=== PATIENT | male | born 1975 | race Caucasian/White ===

== ENCOUNTER 2024-08-03 16:02 | Emergency (ER) | payer OTHER ==
[2024-08-03 16:40] LABS: BASOPHILS ABSOLUTE AUTO 0.1 K/mm3 (0.0-0.2); BASOPHILS PERCENT AUTO 0.5 % (0.0-1.0); EOSINOPHILS ABSOLUTE AUTO 0.2 K/mm3 (0.0-0.4); EOSINOPHILS PERCENT AUTO 1.6 % (0.0-6.0); HEMATOCRIT 47.5 % (42.0-52.0); HEMOGLOBIN 16.1 gm/dl (14.0-18.0); IMMATURE GRAN ABSOLUTE AUTO 0.06 K/mm3 (0.00-0.05); IMMATURE GRAN PERCENT AUTO 0.4 % (0.0-0.4); LYMPHOCYTES ABSOLUTE AUTO 1.3 K/mm3 (1.0-4.8); LYMPHOCYTES PERCENT AUTO 9.1 % (24.0-44.0); MEAN CORPUSCULAR HEMOGLOBIN 29.9 pg (28.0-32.0); MEAN CORPUSCULAR HGB CONC 33.9 g/dl (32.0-36.0); MEAN CORPUSCULAR VOLUME 88.1 fl (83.0-99.0); MEAN PLATELET VOLUME 9.7 fl (9.4-12.4); MONOCYTES ABSOLUTE AUTO 1.1 K/mm3 (0.0-0.8); MONOCYTES PERCENT AUTO 7.2 % (0.0-8.0); NEUTROPHILS ABSOLUTE AUTO 11.9 K/mm3 (1.8-7.7); NEUTROPHILS PERCENT AUTO 81.2 % (41.0-71.0); PLATELET COUNT,PLT 366 K/mm3 (150-400); RED BLOOD CELL COUNT 5.39 M/mm3 (4.52-5.90); WHITE BLOOD CELL COUNT,WBC 14.65 K/mm3 (3.9-11.3)
[2024-08-03 16:58] LABS: INR 1.06; PROTHROMBIN TIME 11.2 SECONDS (9.7-12.0)
[2024-08-03 17:00] LABS: PTT,PARTIAL THROMBOPLSTIN TIME 23.1 SECONDS (21.7-31.4)
[2024-08-03 17:13] LABS: A/G RATIO 0.9 (1-2); ALBUMIN 3.5 g/dl (3.4-5.0); ANION GAP 14.1 (5-15); BILIRUBIN TOTAL 0.3 mg/dL (0.2-1.0); BUN/CREATININE RATIO 14.2 (14-18); CALCIUM 9.6 mg/dL (8.5-10.1); CREATININE 1.2 mg/dL (0.7-1.3); EST CRCL DRUG DOSING (CG) 73.63 mL/min; POTASSIUM,K 4.1 mEq/L (3.5-5.1); PROTEIN TOTAL,TP 7.4 g/dl (6.4-8.2)
[2024-08-03] MEDS: Aspirin 325 MG Tab.EC PO ONE (17:36)
[2024-08-03] MEDS: Ketorolac 30 MG/ML SDV IVPUSH ONE (18:17)
== END 2024-08-03 19:33 | disposition home or self-care (01) ==
LOC: JD.ED 16:02
DX: R07.89 Other chest pain (principal)
CPT/HCPCS: 36415; 71045; 80053; 83735; 83880; 84484; 85025; 85610; 85730; 93005; 96374; 99285; A9270; J1885; 99284

== ENCOUNTER 2024-08-04 03:39 | Observation (INO) | payer OTHER ==
[2024-08-04] MEDS: Aspirin 81 MG Tab.Chew PO ONE (04:10)
[2024-08-04 04:30] LABS: BASOPHILS PERCENT AUTO 0.3 % (0.0-1.0); EOSINOPHILS ABSOLUTE AUTO 0.3 K/mm3 (0.0-0.4); EOSINOPHILS PERCENT AUTO 2.2 % (0.0-6.0); HEMATOCRIT 48.7 % (42.0-52.0); HEMOGLOBIN 16.4 gm/dl (14.0-18.0); IMMATURE GRAN ABSOLUTE AUTO 0.05 K/mm3 (0.00-0.05); IMMATURE GRAN PERCENT AUTO 0.4 % (0.0-0.4); LYMPHOCYTES ABSOLUTE AUTO 2.1 K/mm3 (1.0-4.8); LYMPHOCYTES PERCENT AUTO 16.1 % (24.0-44.0); MEAN CORPUSCULAR HEMOGLOBIN 30.2 pg (28.0-32.0); MEAN CORPUSCULAR HGB CONC 33.7 g/dl (32.0-36.0); MEAN CORPUSCULAR VOLUME 89.7 fl (83.0-99.0); MEAN PLATELET VOLUME 9.7 fl (9.4-12.4); MONOCYTES ABSOLUTE AUTO 1.3 K/mm3 (0.0-0.8); MONOCYTES PERCENT AUTO 9.9 % (0.0-8.0); NEUTROPHILS ABSOLUTE AUTO 9.2 K/mm3 (1.8-7.7); NEUTROPHILS PERCENT AUTO 71.1 % (41.0-71.0); PLATELET COUNT,PLT 340 K/mm3 (150-400); RED BLOOD CELL COUNT 5.43 M/mm3 (4.52-5.90)
[2024-08-04 04:49] LABS: A/G RATIO 0.8 (1-2); ALBUMIN 3.3 g/dl (3.4-5.0); ANION GAP 14.9 (5-15); BILIRUBIN TOTAL 0.4 mg/dL (0.2-1.0); BUN/CREATININE RATIO 14.5 (14-18); CALCIUM 9.9 mg/dL (8.5-10.1); CREATININE 1.1 mg/dL (0.7-1.3); EST CRCL DRUG DOSING (CG) 80.32 mL/min; MAGNESIUM 2.3 mg/dL (1.8-2.4); POTASSIUM,K 3.9 mEq/L (3.5-5.1); PROTEIN TOTAL,TP 7.3 g/dl (6.4-8.2)
[2024-08-04] MEDS ORDERED: Naloxone 0.4 MG/ML SDV IVPUSH PRN (05:14)
[2024-08-04] MEDS: Morphine 4 MG/ML Syringe IVPUSH ONE (05:21)
[2024-08-04] MEDS: Sodium Chloride 0.9% 10 ML Syringe FLUSH PRN (05:22)
[2024-08-04] MEDS: Iopamidol 755 Mg/ML 100 ML Bottle IVPUSH ONE (05:51)
[2024-08-04] MEDS: Ketorolac 15 MG/ML SDV IVPUSH ONE (08:47)
[2024-08-04] MEDS ORDERED: Docusate Sodium 100 MG Cap PO PRN (09:49)
[2024-08-04] MEDS ORDERED: Ondansetron 4 MG Tab.DIS PO PRN (09:49)
[2024-08-04] MEDS: Pantoprazole 40 MG Tab.CR PO SCH (10:18)
[2024-08-04 10:32] LABS: CHOLESTEROL HDL 35 mg/dL (40-59); CHOLESTEROL LDL DIRECT 245 mg/dL (<100); CHOLESTEROL TOTAL 317 mg/dL (<200); TRIGLYCERIDES 119 mg/dL (<150)
[2024-08-04 10:56] LABS: HEMOGLOBIN A1C 5.1 %
[2024-08-04] MEDS: Acetaminophen 325 MG Tab PO PRN (16:06)
[2024-08-04] MEDS ORDERED: Indomethacin 25 MG Cap PO SCH (17:00)
[2024-08-04] MEDS: Indomethacin 25 MG Cap PO SCH (18:37)
[2024-08-04] MEDS: atorvaSTATin 40 MG Tab PO SCH (20:00)
[2024-08-05 05:12] LABS: ANION GAP 12.7 (5-15); BUN/CREATININE RATIO 15.8 (14-18); CALCIUM 9.1 mg/dL (8.5-10.1); CREATININE 1.2 mg/dL (0.7-1.3); EST CRCL DRUG DOSING (CG) 73.63 mL/min; POTASSIUM,K 4.7 mEq/L (3.5-5.1)
[2024-08-05] MEDS: Nitroglycerin 0.4 MG Tab.SL SL PRN (08:37)
[2024-08-05] MEDS: Enoxaparin 40 MG/0.4 ML Syringe SUBCUT SCH (08:38)
[2024-08-05] MEDS ORDERED: Metoprolol Tartrate 5 MG in Sodium Chloride 0.9% 50 ML IV ONE (08:57)
[2024-08-05] MEDS: Metoprolol Tartrate 50 MG Tab PO SCH (10:04)
[2024-08-05] MEDS: Apixaban 5 MG Tab PO SCH (10:04)
[2024-08-05] MEDS: Metoprolol Tartrate 5 MG/5 ML SDV IVPUSH ONE (10:04)
[2024-08-05] MEDS: Metoprolol Tartrate 25 MG Tab PO ONE (10:15)
[2024-08-05] MEDS: Aspirin 81 MG Tab.Chew PO SCH (10:16)
== END 2024-08-05 15:07 ==
LOC: JD.ED 03:39 → JD.MS 09:22
PROVIDERS: ADMIT Family Medicine; ATTEND Family Medicine
DX: I30.9 Acute pericarditis, unspecified (principal); R07.9 Chest pain, unspecified; I25.10 Atherosclerotic heart disease of native coronary artery without angina pectoris; J98.11 Atelectasis; E78.00 Pure hypercholesterolemia, unspecified; Z79.899 Other long term (current) drug therapy
CPT/HCPCS: 36415; 71045; 71045-26; 71275; 71275-26; 78452; 78452-26; 80048; 80053; 80061; 83036; 83605; 83735; 83880; 84484; 85025; 85379; 93005; 93010; 93017; 93306; 94761; 96372; 96374; 96375; 99284; 99285-25; A9270-GY; A9500; G0378; J1650; J1885; J2270; J3490; Q9967

== ENCOUNTER 2025-02-27 01:18 | Emergency (ER) | payer OTHER ==
[2025-02-27] MEDS ORDERED: Sodium Chloride 0.9% 10 ML Syringe FLUSH PRN (01:35)
[2025-02-27] MEDS: Sodium Chloride 0.9% 1,000 ML IV ONE (01:49)
[2025-02-27 01:56] LABS: BARBITURATE SCREEN,URINE NEGATIVE (CUTOFF=200); BENZODIAZEPINES SCREEN,URINE NEGATIVE (CUTOFF=150); BUPRENORPHINE SCREEN,URINE NEGATIVE (CUTOFF=10); METHADONE SCREEN, URINE NEGATIVE (CUT0FF=200); METHAMPHETAMINES SCREEN, URINE NEGATIVE (CUTOFF=500); OXYCODONE SCREEN,URINE NEGATIVE (CUT0FF=100); THC SCREEN,URINE 20 NG/ML NEGATIVE (CUTOFF=50)
[2025-02-27 01:58] LABS: AMPHETAMINES SCREEN, URINE NEGATIVE (CUTOFF=500)
[2025-02-27 01:59] LABS: BASOPHILS ABSOLUTE AUTO 0.1 K/mm3 (0.0-0.2); BASOPHILS PERCENT AUTO 0.8 % (0.0-1.0); EOSINOPHILS ABSOLUTE AUTO 0.1 K/mm3 (0.0-0.4); EOSINOPHILS PERCENT AUTO 1.5 % (0.0-6.0); HEMOGLOBIN 16.2 gm/dl (14.0-18.0); IMMATURE GRAN ABSOLUTE AUTO 0.02 K/mm3 (0.00-0.05); IMMATURE GRAN PERCENT AUTO 0.3 % (0.0-0.4); LYMPHOCYTES ABSOLUTE AUTO 1.5 K/mm3 (1.0-4.8); LYMPHOCYTES PERCENT AUTO 24.9 % (24.0-44.0); MEAN CORPUSCULAR HEMOGLOBIN 30.3 pg (28.0-32.0); MEAN CORPUSCULAR HGB CONC 34.5 g/dl (32.0-36.0); MEAN CORPUSCULAR VOLUME 87.9 fl (83.0-99.0); MEAN PLATELET VOLUME 9.5 fl (9.4-12.4); MONOCYTES ABSOLUTE AUTO 0.7 K/mm3 (0.0-0.8); NEUTROPHILS ABSOLUTE AUTO 3.6 K/mm3 (1.8-7.7); NEUTROPHILS PERCENT AUTO 61.5 % (41.0-71.0); PLATELET COUNT,PLT 335 K/mm3 (150-400); RED BLOOD CELL COUNT 5.35 M/mm3 (4.52-5.90); WHITE BLOOD CELL COUNT,WBC 5.91 K/mm3 (3.9-11.3)
[2025-02-27 02:39] LABS: A/G RATIO 0.8 (1-2); ALBUMIN 3.2 g/dl (3.4-5.0); ANION GAP 20.3 (5-15); BILIRUBIN TOTAL 0.3 mg/dL (0.2-1.0); BUN/CREATININE RATIO 9.2 (14-18); CALCIUM 8.3 mg/dL (8.5-10.1); CREATININE 1.2 mg/dL (0.7-1.3); EST CRCL DRUG DOSING (CG) 72.83 mL/min; ETHANOL BLOOD MEDICAL 0.24 gm% (0.00); POTASSIUM,K 3.3 mEq/L (3.5-5.1); TSH 4.753 uIU/mL (0.358-3.74)
== END 2025-02-27 03:09 ==
LOC: JD.ED 01:18
DX: F10.120 Alcohol abuse with intoxication, uncomplicated (principal); Z86.16 Personal history of COVID-19
CPT/HCPCS: 36415; 71045; 80053; 80143; 80179; 80306; 80307; 84443; 84484; 85025; 93005; 96360; 99284; J7030